=== PATIENT | male | born 1980 | race Caucasian/White ===

== ENCOUNTER 2018-01-23 22:40 | Emergency (ER) | payer BC, OTHER ==
[2018-01-23 22:47] VITALS: BP 125/78
[2018-01-23 23:21] LABS: URINE BILIRUBIN NEGATIVE (NEGATIVE); URINE BLOOD 1+ (NEGATIVE); URINE CLARITY Clear (Clear); URINE COLOR Yellow (YELLOW); URINE GLUCOSE (UA) NORMAL (Normal); URINE LEUKOCYTE ESTERASE NEG Leu/uL (Negative); URINE PROTEIN NEGATIVE (NEGATIVE); URINE UROBILINOGEN NORMAL mg/dL (0.2-1.0)
[2018-01-23 23:39] VITALS: PULSE 107; RESP 20; TEMP 100.7; O2SAT 98
--- NOTE | 2018-01-23 23:55 | C.PDOC ---
History Of Present Illness 37 year old male presents to the ER with a complaint of cough, body aches, and fever for the past few days. Patient states his roommates at home have similar symptoms. He note he felt tired and malaise today which prompted visit. Denies recent travel, nausea, vomiting, diarrhea, or abdominal pain. Time Seen by Provider: 01/23/18 22:53 Chief Complaint (Nursing): Flu-like Symptoms History Per: Patient History/Exam Limitations: no limitations Onset/Duration Of Symptoms: Days Current Symptoms Are (Timing): Still Present Location Of Pain: None Sick Contacts (Context): None Associated Symptoms: Fever, Cough, Myalgias. denies: Nausea, Vomiting, Diarrhea Ear Symptoms: Bilateral: None Recent travel outside of the [place]: No Past Medical History Reviewed: Historical Data, Nursing Documentation, Vital Signs Vital Signs: Last Vital Signs Temp 100.7 F H 01/23/18 23:38 Pulse 107 H 01/23/18 23:38 Resp 20 01/23/18 23:38 BP 125/78 01/23/18 22:42 Pulse Ox 98 01/23/18 23:55 Family History: States: Unknown Family Hx - Social History Hx Alcohol Use: No Hx Substance Use: No Review Of Systems Constitutional: Positive for: Fever Respiratory: Positive for: Cough Gastrointestinal: Negative for: Nausea, Vomiting, Abdominal Pain, Diarrhea Musculoskeletal: Positive for: Other (Body aches) Physical Exam - Physical Exam Appears: Non-toxic Skin: Normal Color, Warm, Dry Head: Atraumatic, Normacephalic Eye(s): bilateral: Normal Inspection Ear(s): Bilateral: Normal Nose: Normal Oral Mucosa: Moist Throat: Normal, No Erythema, No Exudate Neck: Normal, Supple Chest: Symmetrical, No Tenderness Cardiovascular: Rhythm Regular Respiratory: Normal Breath Sounds, No Rales, No Rhonchi, No Wheezing Neurological/Psych: Oriented x3, Normal Speech ED Course And Treatment O2 Sat by Pulse Oximetry: 98 (Room air) Pulse Ox Interpretation: Normal - Radiology CXR: Interpreted by Me, Viewed By Me CXR Interpretation: Yes: No Acute Disease. No: Infiltrates Progress Note: CXR and urinalysis ordered, results were negative. Tylenol administered. Patient is resting comfortably in no acute distress, vitals are stable, will discharge home with Rx and instructions to follow up with PMD or return if symptoms worsen. Disposition Counseled Patient/Family Regarding: Diagnosis, Need For Followup, Rx Given - Disposition Referrals: 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 - Scribe Statement The provider has reviewed the documentation as recorded by the Scribiveth Zendejas All medical record entries made by the Scribiveth were at my direction and personally dictated by me. I have reviewed the chart and agree that the record accurately reflects my personal performance of the history, physical exam, medical decision making, and the department course for this patient. I have also personally directed, reviewed, and agree with the discharge instructions and disposition.
--- NOTE | 2018-01-24 08:08 | RAD ---
Chest x-ray two views History: Infiltrate. Comparison: None. Findings: No focal infiltrate or effusion. Small nodular density projecting over left lung apex may represent confluence of shadows with ribs and vessels. Heart size within normal limits. Impression: No focal infiltrate or effusion.
== END 2018-01-23 23:58 | disposition home or self-care (01) ==
LOC: C.ER 22:40
DX: J11.1 Influenza due to unidentified influenza virus with other respiratory manifestations (principal)